=== PATIENT | male | born 1940 | race Caucasian/White ===

== ENCOUNTER → 2019-02-25 | Outpatient (CLI) | payer MEDICARE, OTHER ==
--- NOTE | 2019-02-25 09:19 | ST Modified Barium Swallow ---
Recommendation - Recommendations Recommendations: Recommend nectar thick liquids and mechanical soft solids. Continue with current dysphagia treatment. Apparent improvement from prior study based on patient/family report. Medical Diagnoses - Medical Diagnoses Medical Diagnosis Description & ICD-10 Code(s): dysphagia R13.12 Other Medical Diagnoses/Co-Morbidities: per patient report: COPD, GERD, CVA x3 weeks ago ST Modified Barium Swallow - General Date: 02/25/19 Referring Physician: Dr. Muñoz Risks/Precautions: Aspiration Date of Onset: 01/29/19 Reason for Referral: assess swallow function - History History obtained from: Patient -: Medical - Patient arrived with daughter for assessment. Patient acted as primary historian, daughter also aided in providing history. The patient reportedly had a stroke on 01/29/19 and was hospitalized at [facility]. While in the hospital, he was placed on honey thick liquids. He reportedly had a swallow study which showed "some things were going down the wrong pipe, the flapper wasn't flapping", apparently referring to aspiration and reduced epiglottic inversion. The patient is currently receiving home health speech therapy, with NMES and dysphagia exercises. He was recently upgraded to nectar thick liquids. Medications: per patient report: protonix, lipitor, spiriva, advain, aspirin, toprol, metformin Allergies: none reported - Functional Status Prior Functional Status: INDEPENDENT: feeding - independent Current Functional Limitations: feeding - modified diet due to aspiration - Subjective Patient/caregiver goal(s): better swallow, safe swallow Cognitive-Linguistic Function: WNL Speech Intelligibility: WNL Current Nutritional Means: PO Current PO diet: Mechanical - cut, Thickened liquids Current symptoms: Aspiration - seen on prior study Pain: Patient reports, 0/5 - Objective Assessment: Upright, Left Lateral - Food Trials Used Food trials used: Thin liquids, Honey-thickened liquids, Scotts thick liquids, Pureed, Regular The patient: Was Able to Self Feed, via cup, via spoon - Oral-Motor Skills Dentition: Edentulous Velo-pharyngeal function: Unremarkable Laryngeal Function: clear voicing - Assessment Oral prep: Normal Labial closure: Adequate Leakage: None Mastication: Adequate Lingual Movement: Normal Oral stage: Normal for this Procedure - Pharyngeal Stage Initiation of Pharyngeal Stage Reflex: Delayed - triggered at level of valleculae Decreased laryngeal elevation: No Reduced Velopharyngeal Closure: no Reduced pressure generation: Yes - mild reduced tongue-based retraction: No Pre-swallow pooling in valleculae: Moderate Pre-Swallow pooling in pyriforms: None Reduced Thyro-Hyoid approximation: No Reduced epiglottic excursion: Yes - mild Reduced pharyngeal peristalsis/contraction: No Multiple Swallows with: Cleared w/ Dry Swallow Post-swallow residulas vallecular: Moderate Post-Swallow residuals in pyriforms: None Reduced Cricopharyngeal opening: No - Fall Risk Assessment Medications/Conditions that increase fall risks include: Antidepressants, sedatives, anti-arrhythmic, diuretic, benzodiazipenes, neuroleptics. BP regulation problems, cardiac problems, balance or gait deficits, neurological problems. Fall Risk Actions Taken: No action needed - Behavioral Observations During evaluation process patient: was pleasant, was cooperative, able to answer questions - Treatment / Educational Needs: Treatment/Education Needs: Treatment consisted of patient education on the role of the Speech Pathologist. Patient's plan of care and golas were communicated as well as scheduling and attendance policies. Recommendations for initial home program were shared. Patient demonstrated understanding and verbalized agreement. - Impression/Summary Laryngeal Penetration: Yes, Deep, during swallow Consistency: Thin, Scotts Tracheal Aspiration: no Effective compensatory strategies: throat clear & reswallow, hard swallow Ineffective compensatory strategies: chin down Patient presents with: Pharyngeal stage dysph., Mild-Moderate Risk of Aspiration: Moderate Risk of nutritional compromise: WNL Evaluation and Findings: Patient presents with moderate pharyngeal phase dysphagia, characterized by mildly reduced epiglottic inversion and mildly reduced timing of the swallow. This led to deep penetration of thin liquid and nectar thick liquids. No aspiration seen, however, patient is at risk due to swallow function. With nectar liquids, use of hard swallow prevented penetration. With thin liquids, deep penetration continued with chin tuck and with hard swallow. Penetration was not always felt, as therapist had to cue patient to cough to clear airway x2, patient spontaneously coughed to clear penetration x1. With solid textures, some valleculae residue was seen, possibly due to reduced epiglottic inversion. This residue cleared with a dry swallow. Based on patient and family report from previous MBSS, the epiglottis is likely moving better than it was previously, but still not fully inverting. - Recommendations Solid diet recommendations: Mechanical Soft Liquid Diet Modification: [place]-Thick Strict aspiration precautions: Yes Dysphagia therapy with PICTURES EDITOR: yes, f/u with current thera. Recommended techniques: Fully Upright During Meal, Dry Swallow After Bite, Small Bites and Sips, Alternate Bites/Sips Information, Precautions and Recommendations: Patient (Written), Patient (Verbal), Family Member (Written), Family Member (Verbal) - Plan of Care Strategies to optimize patient understanding include:: ongoing assessment of educational needs, implementation of educational strategies, and re-education. - - -: Thank you for the opportunity to work with this patient and his/her family. Should you have any questions about this patient's plan or progress, I can be reached at [phone].
--- NOTE | 2019-02-25 09:24 | RADIOLOGY REPORT (SQ) ---
EXAM DESCRIPTION: FANTA SWALLOW COMPLETED DATE/TIME: 02/25/2019 9:10 am REASON FOR STUDY: DYSPHAGIA, OROPHARYNGEAL PHASE (R13.12) R13.12 DYSPHAGIA, OROPHARYNGEAL PHASE COMPARISON: None. TECHNIQUE: Videofluoroscopic swallowing examination was performed in conjunction with speech patholo gy. Videofluoroscopic imaging was obtained and reviewed and these are the findings: RADIATION DOSE: Fluoro time 2.7 minutes 1 images saved to PACS. LIMITATIONS: None FINDINGS: The patient was brought into the fluoro room and placed upright on a modified barium swall ow chair. The patient was then given multiple consistencies mixed with barium to swallow under live fluoroscopic video guidance. According to the Speech Pathologist there was laryngeal penetration see n with thin barium. A single episode of laryngeal penetration was also seen with nectar consistency. No definite aspiration identified. Please refer to the speech pathology report for further details. IMPRESSION: LARYNGEAL PENETRATION SEEN WITH THIN BARIUM AND NECTAR CONSISTENCY. NO DEFINITE ASPIRAT ION IDENTIFIED. PLEASE SEE SPEECH PATHOLOGIST REPORT FOR OTHER FINDINGS AND RECOMMENDATIONS. COMMENT: None Quality ID [id number]: Final reports for procedures using fluoroscopy that document radiation exposure monica balbir, or exposure time and number of fluorographic images (if radiation exposure indices are not avail able) TECHNICAL DOCUMENTATION: JOB ID: [id number] [employer] All Rights Reserved Reading location - IP/workstation name: [email or web address] [id number]
== END ==
LOC: RAD 08:12
PROVIDERS: ATTEND Family Medicine
DX: R13.12 Dysphagia, oropharyngeal phase (principal)
CPT/HCPCS: 74230

== ENCOUNTER → 2019-03-25 | Outpatient (CLI) | payer MEDICARE, OTHER ==
--- NOTE | 2019-03-25 09:02 | ST Modified Barium Swallow ---
Recommendation - Recommendations Recommendations: Recommend mechanical soft diet as tolerated by dentition, and thin liquids. Small bites and sips recommended. Patient to follow up with home health speech therapist for other recommendations/strategies, continue with previously established exercises. Medical Diagnoses - Medical Diagnoses Medical Diagnosis Description & ICD-10 Code(s): dysphagia R13.12 Other Medical Diagnoses/Co-Morbidities: per patient report: COPD, GERD, CVA x3 ST Modified Barium Swallow - General Date: 03/25/19 Referring Physician: Dr. Muñoz Risks/Precautions: Aspiration Date of Onset: 01/29/19 Reason for Referral: objectively assess swallow, least restrictive diet - History History obtained from: Patient -: Medical - Patient arrived with a friend, attended assessment independently. Patient acted as primary historian. The patient had a stroke on 01/29/19 and was hospitalized at [facility]. While in the hospital, he was placed on honey thick liquids. He reportedly had a swallow study which showed "some things were going down the wrong pipe, the flapper wasn't flapping", apparently referring to aspiration and reduced epiglottic inversion. More recent study in February showed deep penetration of thin and nectar thick liquids. Thick liquids were able to be cleared with a hard swallow. The patient is currently receiving home health speech therapy, with NMES and dysphagia exercises. Medications: per patient report: protonix, lipitor, spiriva, advain, aspirin, toprol, metformin Allergies: none reported - Functional Status Prior Functional Status: INDEPENDENT: feeding - modified diet since stroke on 01/29/19. Current Functional Limitations: feeding - nectar thick liquids - Subjective Patient/caregiver goal(s): safe swallow, other - diet recommendations Cognitive-Linguistic Function: WNL Speech Intelligibility: WNL Current Nutritional Means: PO Current PO diet: Mechanical- ground, Thickened liquids - nectar Current symptoms: Aspiration Pain: Patient reports, 0/5 - Objective Assessment: Upright, Left Lateral - Food Trials Used Food trials used: Thin liquids, [place] thick liquids, Pureed, Regular The patient: Was Able to Self Feed - Oral-Motor Skills Dentition: Edentulous Velo-pharyngeal function: Unremarkable Laryngeal Function: clear voicing - Assessment Oral prep: Normal Labial closure: Adequate Leakage: None Mastication: Adequate Lingual Movement: Normal Oral stage: Age appropriate - Pharyngeal Stage Initiation of Pharyngeal Stage Reflex: Normal Decreased laryngeal elevation: No Reduced Velopharyngeal Closure: no Reduced pressure generation: Yes - mild reduced tongue-based retraction: No Pre-swallow pooling in valleculae: Mild Pre-Swallow pooling in pyriforms: None Reduced Thyro-Hyoid approximation: No Reduced epiglottic excursion: No Reduced pharyngeal peristalsis/contraction: No Multiple Swallows with: Cleared w/ Dry Swallow Post-swallow residulas vallecular: Mild Post-Swallow residuals in pyriforms: Mild Reduced Cricopharyngeal opening: No - Fall Risk Assessment Medications/Conditions that increase fall risks include: Antidepressants, sedatives, anti-arrhythmic, diuretic, benzodiazipenes, neuroleptics. BP regulation problems, cardiac problems, balance or gait deficits, neurological problems. Fall Risk Actions Taken: No action needed - Behavioral Observations During evaluation process patient: was pleasant, was cooperative, able to answer questions - Treatment / Educational Needs: Treatment/Education Needs: Treatment consisted of patient education on the role of the Speech Pathologist. Patient's plan of care and golas were communicated as well as scheduling and attendance policies. Recommendations for initial home program were shared. Patient demonstrated understanding and verbalized agreement. - Impression/Summary Laryngeal Penetration: Yes, after swallow - very mild penetration of residuals after the swallow, cleared with throat clear easily Tracheal Aspiration: no Effective compensatory strategies: throat clear & reswallow Patient presents with: Mild-Moderate Risk of Aspiration: Minimal Evaluation and Findings: Patient presents with mild dysphagia, improved swallow performance when compared to his last study. Trace amounts of residuals seen to penetrate into laryngeal vestibule after the swallow, this cleared easily with throat clear. No other penetration or aspiration seen with trial textures. Improved timing and epiglottic inversion seen. - Recommendations Solid diet recommendations: Ground Meat Liquid Diet Modification: Thin Strict aspiration precautions: Yes Pt/Family education and followup with MD: Yes Dysphagia therapy with IMPLEMENT MECHANIC: f/u with current thera. Recommended techniques: Fully Upright During Meal, Small Bites and Sips Supervision: Independent Information, Precautions and Recommendations: Patient (Written), Patient (Verbal) - Time Total Time: 30 - Plan of Care Strategies to optimize patient understanding include:: ongoing assessment of educational needs, implementation of educational strategies, and re-education. - - -: Thank you for the opportunity to work with this patient and his/her family. Should you have any questions about this patient's plan or progress, I can be reached at [phone].
--- NOTE | 2019-03-25 09:39 | RADIOLOGY REPORT (SQ) ---
EXAM DESCRIPTION: COOKIE SWALLOW COMPLETED DATE/TIME: 03/25/2019 9:20 am REASON FOR STUDY: OROPHARYNGEAL DYSPHAGIA (R13.12) R13.12 DYSPHAGIA, OROPHARYNGEAL PHASE FOLLOW-UP POST SPEECH THERAPY. COMPARISON: Modified swallow 02/25/2019. TECHNIQUE: Videofluoroscopic swallowing examination was performed in conjunction with speech patholo gy. Videofluoroscopic imaging was obtained and reviewed and these are the findings: RADIATION DOSE: Fluoro time 2.2 minutes 1 images saved to PACS. LIMITATIONS: None FINDINGS: The patient was brought into the fluoro room and placed upright on a modified barium swall ow chair. The patient was then given multiple consistencies mixed with barium to swallow under live fluoroscopic video guidance. According to the Speech Pathologist there was no penetration or aspirat ion. Mild to moderate residuals seen in the piriforms. Please refer to the speech pathology report f or further details. IMPRESSION: NO EVIDENCE OF PENETRATION OR ASPIRATION. PLEASE SEE SPEECH PATHOLOGIST REPORT FOR OTHER FINDINGS AND RECOMMENDATIONS. COMMENT: None Quality ID [id number]: Final reports for procedures using fluoroscopy that document radiation exposure monica balbir, or exposure time and number of fluorographic images (if radiation exposure indices are not avail able) TECHNICAL DOCUMENTATION: JOB ID: [id number] [employer]- All Rights Reserved Reading location - IP/workstation name: [email or web address] [id number]
== END ==
LOC: RAD 08:05
PROVIDERS: ATTEND Family Medicine
DX: R13.12 Dysphagia, oropharyngeal phase (principal); K21.9 Gastro-esophageal reflux disease without esophagitis; J44.9 Chronic obstructive pulmonary disease, unspecified; Z86.73 Personal history of transient ischemic attack (TIA), and cerebral infarction without residual deficits
CPT/HCPCS: 74230